=== PATIENT | female | born 1975 | race Two or more races ===

== ENCOUNTER 2016-11-07 09:04 | Emergency (ER) | payer OTHER ==
[2016-11-07 09:11] VITALS: TEMP 98.4; BMI 25.0
[2016-11-07 09:53] LABS: BASOPHIL 0.5 % (0-2.0); EOSINOPHIL 3.2 % (0-4.5); MCH 31.1 pg (25.7-33.7); MCHC 34.5 g/dl (32.0-36.0); MEAN PLT VOLUME 8.6 fl (7.5-11.1); NEUTROPHILS 63.8 % (42.8-82.8); PLATELET COUNT 214 K/MM3 (134-434); RDW 12.5 % (11.6-15.6); WHITE BLOOD COUNT 6.4 K/mm3 (4.0-10.0)
[2016-11-07 09:55] LABS: URINE APPEARANCE CLOUDY; URINE BILIRUBIN NEGATIVE (NEGATIVE); URINE BLOOD 1+ (NEGATIVE); URINE COLOR YELLOW; URINE GLUCOSE (UA) NEGATIVE (NEGATIVE); URINE KETONE NEGATIVE (NEGATIVE); URINE LEUK ESTERASE TRACE (NEGATIVE); URINE NITRITE NEGATIVE (NEGATIVE); URINE PROTEIN NEGATIVE (NEGATIVE); URINE UROBILINOGEN NEGATIVE mg/dL (0.2-1.0)
--- NOTE | 2016-11-07 10:03 | PDOC ---
History of Present Illness <Nancy Whitten - Last Filed: 11/07/16 11:25> - History of Present Illness Initial Comments: 11/07/16 09:57 "The patient is a 41 year old female @ 8 weeks, with a significant past medical history of kidney stones, umbilical hernia,retina detachment, and UTIs who presents to the emergency department complaining of lower abdominal pain and vaginal bleeding since yesterday evening. Patient describes the lower abdominal pain as cramp-like. She states that the vaginal bleeding was a small amount and began last night. This morning she states that she experienced a whole napkin full of pieces of blood clots. Pt had no complications with her previous pregnancies, no h/o miscarriage. Had an ultrasound at 6 weeks that she believes showed a +IUP. She denies recent fevers, chills, headache or dizziness. She denies recent nausea, vomit, diarrhea or constipation She denies recent dysuria, frequency, urgency or hematuria.. She denies recent chest pain or shortness of breath. Allergies: NKA Past surgical history: , Umbilical hernia Social history: Nonsmoker. Denies EtOH use and recreational drug use. " <Emeka Galvez - Last Filed: 11/07/16 12:55> - General Chief Complaint: Vaginal Bleeding Stated Complaint: ABD PAIN (8 WKS ) Time Seen by Provider: 11/07/16 09:15 Past History <Nancy Whitten - Last Filed: 11/07/16 11:25> - Past Medical History Kidney Stones: Yes - Surgical History Abdominal Surgery: (HERNIA) - Reproductive History Is Patient Now?: Yes (#): 4 Para: 3 - Psycho/Social/Smoking Cessation Hx Anxiety: No Suicidal Ideation: No Smoking History: Never smoked Hx Alcohol Use: No Drug/Substance Use Hx: No Substance Use Type: None <Emeka Galvez - Last Filed: 11/07/16 12:55> - Past Medical History Allergies/Adverse Reactions: Allergies Allergy/AdvReac Type Severity Reaction Status Date / Time No Known Allergies Allergy Verified 11/07/16 09:11 Home Medications: Ambulatory Orders Cholecalciferol (Vitamin D3) [Vitamin D3] 2,000 unit PO WEEKLY 11/07/16 Vits #93/Iron Fum/FA [ Formula Tablet] 1 each PO DAILY Review of Systems - Review of Systems Comments:: 11/07/16 10:01 "GENERAL/CONSTITUTIONAL: No fever or chills. No weakness. HEAD, EYES, EARS, NOSE AND THROAT: No change in vision. No ear pain or discharge. No sore throat. CARDIOVASCULAR: No chest pain or shortness of breath. RESPIRATORY: No cough, wheezing, or hemoptysis. GASTROINTESTINAL: +lower abdominal pain. No nausea, vomiting, diarrhea or constipation. GENITOURINARY: No dysuria, frequency, or change in urination. GYNECOLOGICAL: +vaginal bleeding MUSCULOSKELETAL: No joint or muscle swelling or pain. No neck or back pain. SKIN: No rash NEUROLOGIC: No headache, vertigo, loss of consciousness, or change in strength/ sensation. ENDOCRINE: No increased thirst. No abnormal weight change. HEMATOLOGIC/LYMPHATIC: No anemia, easy bleeding, or history of blood clots. ALLERGIC/IMMUNOLOGIC: No hives or skin allergy. " <Emeka Galvez - Last Filed: 11/07/16 12:55> *Physical Exam - Vital Signs Last Vital Signs Temp Pulse Resp BP Pulse Ox 98.4 F 84 20 131/56 100 11/07/16 09:08 11/07/16 09:08 11/07/16 09:08 11/07/16 09:08 11/07/16 09:08 <Nancy Whitten - Last Filed: 11/07/16 11:25> - Vital Signs Last Vital Signs Temp Pulse Resp BP Pulse Ox 98.4 F 84 20 131/56 100 11/07/16 09:08 11/07/16 09:08 11/07/16 09:08 11/07/16 09:08 11/07/16 09:08 - Physical Exam Comments: 11/07/16 10:02 "GENERAL: Awake, alert, and fully oriented, in no acute distress HEAD: No signs of trauma EYES: PERRLA, EOMI, sclera anicteric, conjunctiva clear ENT: Auricles normal inspection, hearing grossly normal, nares patent, oropharynx clear without exudates. Moist mucosa NECK: Normal ROM, supple, no lymphadenopathy, JVD, or masses LUNGS: Breath sounds equal, clear to auscultation bilaterally. No wheezes, and no crackles HEART: Regular rate and rhythm, normal S1 and S2, no murmurs, rubs or gallops ABDOMEN: +suprapubic tenderness. Soft,normoactive bowel sounds. No guarding, no rebound. No masses : blood in vault, closed os, no CMT, no active bleeding, no adnexal masses or tenderness EXTREMITIES: Normal range of motion, no edema. No clubbing or cyanosis. No cords, erythema, or tenderness NEUROLOGICAL: Cranial nerves II through XII grossly intact. Normal speech, normal gait SKIN: Warm, Dry, normal turgor, no rashes or lesions noted." <Emeka Galvez - Last Filed: 11/07/16 12:55> ED Treatment Course - LABORATORY CBC & Chemistry Diagram: 11/07/16 09:40 11/07/16 09:40 - ADDITIONAL ORDERS Additional order review: Laboratory Results 11/07/16 11/07/16 11/07/16 09:40 09:40 09:40 Sodium 139 Potassium 4.1 Chloride 107 Carbon Dioxide 25 Anion Gap 7 L BUN 12 D Creatinine 0.5 L Creat Clearance w eGFR > 60 Random Glucose 80 D Calcium 9.0 Total Bilirubin 0.3 AST 9 L ALT 20 Alkaline Phosphatase 68 Total Protein 6.3 L Albumin 3.2 L D Beta HCG, Quant 4088.2 Urine Color Yellow Urine Appearance Cloudy Urine pH 5.0 Urine Protein Negative Urine Glucose (UA) Negative Urine Ketones Negative Urine Blood 1+ H Urine Nitrite Negative Urine Bilirubin Negative Urine Urobilinogen Negative Urine RBC 6 Urine WBC 5 Ur Epithelial Cells Rare Urine Mucus Rare Blood Type B POSITIVE Antibody Screen Negative 11/07/16 09:40 RBC 4.27 MCV 90.0 MCHC 34.5 RDW 12.5 MPV 8.6 D Neutrophils % 63.8 Lymphocytes % 25.1 D Monocytes % 7.4 Eosinophils % 3.2 Basophils % 0.5 - RADIOLOGY Radiograph Interpretation: 11/07/16 11:27 Ultrasound Pelvic/Transvaginal Impression: Suspected fluid overlies of 7 weeks 3 days gestational age Reported by: Horacio Casas MD <Nancy Whitten - Last Filed: 11/07/16 11:25> - LABORATORY CBC & Chemistry Diagram: 11/07/16 09:40 11/07/16 09:40 - ADDITIONAL ORDERS Additional order review: 11/07/16 09:40 RBC 4.27 MCV 90.0 MCHC 34.5 RDW 12.5 MPV 8.6 D Neutrophils % 63.8 Lymphocytes % 25.1 D Monocytes % 7.4 Eosinophils % 3.2 Basophils % 0.5 - RADIOLOGY Radiology Studies Ordered: Category Date Time Status TRANSVAGINAL ULTRASOUND US [US] Stat Ultrasound 11/07/16 09:40 Ordered <Emeka Galvez - Last Filed: 11/07/16 12:55> Medical Decision Making - Medical Decision Making 11/07/16 10:03 41 F 8 weeks presenting with 2 days of suprapubic cramps and vaginal bleeding. Concerning for spontaneous AB. Pt with reported TVUS 2 weeks ago confirming IUP, but given that we have no record of that here, will repeat to rule out ectopic. - Labs, T&S, HCG - TVUS 11/07/16 12:45 TVUS shows IUP with no heart movement. Likely demise. OB consulted for inevitable Ab. Dr. Araujo recommends OR for D&C. I discussed with pt the results of the ultrasound and that the findings are consistent with demise. I recommended that she have D&C today. However, pt is opting to see her OB tomorrow for a repeat US and expectant management. Pt understands the higher risk of complications with expectant management, including bleeding and infection. However, she states that she would not like to have a D&C at this time and would rather have a repeat US tomorrow to confirm our findings before she decides what to do. Results of US were printed for patient. I have deemed that pt is of sound mind, without distracting injury or intoxication, and is capable of making decisions on her own. She understands the risks of expectant management instead of D&C. <Emeka Galvez - Last Filed: 11/07/16 12:55> *DC/Admit/Observation/Transfer - Attestations Scribe Attestion: 11/07/16 11:06 Documentation prepared by Nancy Whitten, acting as medical physics professor for Emeka Galvez MD. <Nancy Whitten - Last Filed: 11/07/16 11:25> - Attestations Physician Attestion: 11/07/16 12:55 I, Dr. Emeka Galvez MD, attest that this document has been prepared under my direction and personally reviewed by me in its entirety. I further attest, that it accurately reflects all work, treatment, procedures and medical decision -making performed by me. <Emeka Galvez - Last Filed: 11/07/16 12:55> Diagnosis at time of Disposition: Spontaneous - Discharge Dispostion Disposition: HOME Condition at time of disposition: Good - Referrals Referrals: Guy Ron MD [Primary Care Provider] - Juli Araujo MD [Staff Physician] - - Patient Instructions Printed Discharge Instructions: DI for Miscarriage, Dealing With Miscarriage Additional Instructions: You must follow up with your indoor sports centre manager tomorrow for a repeat ultrasound. Based on our ultrasound today, it is likely that you suffered a miscarriage. If you decide not to have a dilation and curettage (removal of the fetus), you may bleed more or risk infection. If you experience worsening pain, bleeding, lightheadedness, dizziness, chest pain, shortness of breath, or any other concerning symptoms, return immediately to the ER. Print Language: FRISIAN
[2016-11-07 10:07] LABS: URINE MUCUS RARE; URINE RBC 6 /hpf (0-3); URINE WBC 5 /hpf (3-5)
[2016-11-07 10:17] LABS: ALBUMIN 3.2 g/dl (3.4-5.0); ANION GAP 7 (8-16); BILIRUBIN,TOTAL 0.3 mg/dL (0.2-1.0); CO2 25 mmol/L (21-32); CREATININE 0.5 mg/dL (0.55-1.02); GLUCOSE,RANDOM 80 mg/dL (74-106); SGOT/AST 9 U/L (15-37); SGPT/ALT 20 U/L (12-78)
[2016-11-07 10:33] LABS: ALK PHOS 68 U/L (45-117); TOT PROT 6.3 g/dl (6.4-8.2)
[2016-11-07 13:09] VITALS: BP 115/64; PULSE 60
[2016-11-09] MEDS ORDERED: morphine CARPU-JECT 2 MG/1 ML DISP.SYRIN ONE (13:36)
[2016-11-09] MEDS ORDERED: ACETAMINOPHEN 325 MG TABLET (FP) ONE (19:19)
[2016-11-09] MEDS ORDERED: ONDANSETRON 4 MG/2 ML VIAL ONE (19:37)
== END 2016-11-07 13:06 | disposition home or self-care (01) ==
LOC: JER 09:04
DX: O02.1 Missed abortion (principal); Z3A.01 Less than 8 weeks gestation of pregnancy
CPT/HCPCS: 36415; 76830-TC; 76856-TC; 80053; 81003; 81015; 84702; 85025; 86850; 86900; 86901; 99282-25

== ENCOUNTER 2016-11-09 10:22 | Day surgery (SDC) | payer OTHER ==
[2016-11-09 10:45] VITALS: BMI 27.4
[2016-11-09] MEDS ORDERED: SODIUM CHLORIDE 0.9% 1000 ML INFUS.BAG IV ONE ×2 (11:24→13:25)
[2016-11-09] MEDS ORDERED: morphine CARPU-JECT 2 MG/1 ML DISP.SYRIN IVPUSH ONE ×2 (11:25→13:29)
--- NOTE | 2016-11-09 11:29 | PDOC ---
History of Present Illness - General History Source: Patient Exam Limitations: No Limitations - History of Present Illness Initial Comments: 11/09/16 11:51 The patient is a 41-year-old female /0/2/3 at 9 weeks with a significant past medical history of kidney stones, umbilical hernia, lupus, and UTIs, who presents to the emergency department with lower abdominal pain and vaginal bleeding for 3 days. She states she was seen at [facility] ER 2 days ago where she was diagnosed with a miscarriage. She went to her OBGYN yesterday for an abdominal ultrasound which confirmed the lack of heartbeat and 2 cysts on her ovary. She is scheduled for a D&C on Saturday. However, she states the pain has increased since yesterday. She reports the pain is a severe cramping located predominantly at the right suprapubic region radiating to the low back. She reports she soaked one pad yesterday and one this morning, and notes that the bleeding is now bright red and increasing. She denies any clots. She also complains of burning with urination, frequency, and hematuria. The patient denies chest pain, shortness of breath, headache and dizziness. The patient denies fever, chills, nausea, vomit, diarrhea and constipation. She denies any history of STDs. Allergies: NKDA Past Surgical History: , umbilical hernia, retina detachment Social History: Denies any toxic habits PCP: Dr. Guy Ron OBGYN: Dr. Monique Colón/ JARAD Rashid <Vanessa Johnson - Last Filed: 11/09/16 13:21> <Estela Peters - Last Filed: 11/09/16 13:26> - General Chief Complaint: Pain, Acute Stated Complaint: REVISIT/ PAIN Time Seen by Provider: 11/09/16 10:50 Past History <Vanessa Johnson - Last Filed: 11/09/16 13:21> - Past Medical History Disorders: Yes (kidney stones) Kidney Stones: Yes - Surgical History Abdominal Surgery: (HERNIA) - Reproductive History Is Patient Now?: Yes (#): 4 Para: 3 Cervical CA: No Dysfunctional Uterine Bleeding: No Ectopic : No Endometrial CA: No Polycystic Ovaries: No Tubal Ligation: No - Psycho/Social/Smoking Cessation Hx Anxiety: No Suicidal Ideation: No Smoking History: Former smoker Have you smoked in the past 12 months: Yes Information on smoking cessation initiated: No 'Breaking Loose' booklet given: 11/08/16 Hx Alcohol Use: No Drug/Substance Use Hx: No Substance Use Type: None Hx Substance Use Treatment: No <Estela Peters - Last Filed: 11/09/16 13:26> - Past Medical History Allergies/Adverse Reactions: Allergies Allergy/AdvReac Type Severity Reaction Status Date / Time No Known Allergies Allergy Verified 11/09/16 10:41 Home Medications: Ambulatory Orders Cholecalciferol (Vitamin D3) [Vitamin D3] 2,000 unit PO WEEKLY 11/07/16 Vits #93/Iron Fum/FA [ Formula Tablet] 1 each PO DAILY Ferrous Gluconate [Iron] 256 mg PO DAILY 11/08/16 Review of Systems - Review of Systems Able to Perform ROS?: Yes Comments:: 11/09/16 11:51 GENERAL/CONSTITUTIONAL: No fever or chills. No weakness. HEAD, EYES, EARS, NOSE AND THROAT: No change in vision. No ear pain or discharge. No sore throat. CARDIOVASCULAR: No chest pain or shortness of breath. RESPIRATORY: No cough, wheezing, or hemoptysis. GASTROINTESTINAL: (+) Abdominal pain. No nausea, vomiting, diarrhea or constipation. GENITOURINARY: (+) Vaginal bleeding. (+) Dysuria, frequency, hematuria. MUSCULOSKELETAL: No joint or muscle swelling or pain. No neck or back pain. SKIN: No rash NEUROLOGIC: No headache, vertigo, loss of consciousness, or change in strength/ sensation. ENDOCRINE: No increased thirst. No abnormal weight change. HEMATOLOGIC/LYMPHATIC: No anemia, easy bleeding, or history of blood clots. ALLERGIC/IMMUNOLOGIC: No hives or skin allergy. <Vanessa Johnson - Last Filed: 11/09/16 13:21> *Physical Exam - Vital Signs Last Vital Signs Temp Pulse Resp BP Pulse Ox 98.4 F 73 19 105/65 100 11/09/16 10:41 11/09/16 10:41 11/09/16 10:41 11/09/16 11:39 11/09/16 10:41 - Physical Exam Comments: 11/09/16 11:51 GENERAL: Awake, alert, and fully oriented, in no acute distress HEAD: No signs of trauma EYES: PERRLA, EOMI, sclera anicteric, conjunctiva clear ENT: Auricles normal inspection, hearing grossly normal, nares patent, oropharynx clear without exudates. Moist mucosa NECK: Normal ROM, supple, no lymphadenopathy, JVD, or masses LUNGS: Breath sounds equal, clear to auscultation bilaterally. No wheezes, and no crackles HEART: (+) Tachycardic. Regular rhythm, normal S1 and S2, no murmurs, rubs or gallops ABDOMEN: (+) Mild suprapubic tenderness. Soft, normoactive bowel sounds. No guarding, no rebound. No masses PELVIC: (+) Cervical tenderness. No adnexal tenderness. (+) Cervix is to fingertip. (+) Some blood in the vault. No active heavy bleeding. No other discharge. EXTREMITIES: Normal range of motion, no edema. No clubbing or cyanosis. No cords, erythema, or tenderness NEUROLOGICAL: Cranial nerves II through XII grossly intact. Normal speech. SKIN: Warm, Dry, normal turgor, no rashes or lesions noted. <Johnson,Vanessa - Last Filed: 11/09/16 13:21> - Vital Signs Last Vital Signs Temp Pulse Resp BP Pulse Ox 98.4 F 73 19 105/65 100 11/09/16 10:41 11/09/16 10:41 11/09/16 10:41 11/09/16 10:41 11/09/16 10:41 <Estela Peters - Last Filed: 11/09/16 13:26> ED Treatment Course - LABORATORY CBC & Chemistry Diagram: 11/09/16 11:40 11/09/16 11:40 - ADDITIONAL ORDERS Additional order review: 11/09/16 11:40 RBC 4.61 MCV 89.3 MCHC 34.4 RDW 12.7 MPV 8.6 Neutrophils % 67.5 Lymphocytes % 23.4 Monocytes % 6.5 Eosinophils % 2.2 D Basophils % 0.4 - Medications Given in the ED: ED Medications Discontinued Medications Generic Name Dose Route Start Last Admin Trade Name Freq PRN Reason Stop Dose Admin Morphine Sulfate 2 mg 11/09/16 11:25 11/09/16 11:40 Morphine Injection - IVPUSH 11/09/16 11:26 2 mg ONCE ONE Administration Sodium Chloride 1,000 ml 11/09/16 11:24 11/09/16 11:39 Normal Saline - IV 11/09/16 11:25 1,000 ml ONCE ONE Administration <Vanessa Johnson - Last Filed: 11/09/16 13:21> - LABORATORY CBC & Chemistry Diagram: 11/09/16 11:40 11/09/16 11:40 - RADIOLOGY Radiology Studies Ordered: Category Date Time Status <14WKS US [US] Stat Ultrasound 11/09/16 11:23 Ordered <Estela Peters - Last Filed: 11/09/16 13:26> Medical Decision Making - Medical Decision Making 11/09/16 12:08 JARAD Rashid was called and the case was discussed. 11/09/16 13:21 Dr. Medina was called and the case was discussed. Dr. Medina agreed to attempt to take the patient to the OR. <Vanessa Johnson - Last Filed: 11/09/16 13:21> - Medical Decision Making 11/09/16 12:54 41yo female with vaginal bleeding also with R pelvic pain -labs -fingertip os -will repeat hcg and ultrasound -expectant management for spontaneous miscarriage -hx of ovarian cysts, saw 2 per ob yesterday on ultrasound -suspect R pelvic pain from poss ruptured ovarian cyst -repeat ultrasound 11/09/16 13:[address] Alves who will take the pt to the OR for d/c today <Estela Peters - Last Filed: 11/09/16 13:26> *DC/Admit/Observation/Transfer - Attestations Scribe Attestion: 11/09/16 11:51 Documentation prepared by Vanessa Johnson, acting as medical records auditor for Estela Peters DO. <Vanessa Johnson - Last Filed: 11/09/16 13:21> - Discharge Dispostion Admit: Yes - Attestations Physician Attestion: 11/09/16 12:57 I, Dr. Estela Peters DO, attest that this document has been prepared under my direction and personally reviewed by me in its entirety. I further attest, that it accurately reflects all work, treatment, procedures and medical decision -making performed by ma. <Estela Peters - Last Filed: 11/09/16 13:26> Diagnosis at time of Disposition: Spontaneous - Discharge Dispostion Condition at time of disposition: Fair - Referrals Referrals: Guy Ron MD [Primary Care Provider] -
[2016-11-09] MEDS ORDERED: morphine CARPU-JECT 2 MG/1 ML DISP.SYRIN ONE (11:41)
[2016-11-09 11:45] LABS: BASOPHIL 0.4 % (0-2.0); EOSINOPHIL 2.2 % (0-4.5); MCH 30.7 pg (25.7-33.7); MCHC 34.4 g/dl (32.0-36.0); MEAN CELL VOLUME 89.3 fl (80-96); MEAN PLT VOLUME 8.6 fl (7.5-11.1); NEUTROPHILS 67.5 % (42.8-82.8); PLATELET COUNT 246 K/MM3 (134-434); RDW 12.7 % (11.6-15.6); WHITE BLOOD COUNT 7.3 K/mm3 (4.0-10.0)
[2016-11-09 12:08] LABS: ALBUMIN 3.8 g/dl (3.4-5.0); ANION GAP 8 (8-16); BILIRUBIN,TOTAL 0.4 mg/dL (0.2-1.0); CALCIUM 9.7 mg/dL (8.5-10.1); CO2 23 mmol/L (21-32); CREATININE 0.6 mg/dL (0.55-1.02); GLUCOSE,RANDOM 85 mg/dL (74-106); SGOT/AST 15 U/L (15-37); SGPT/ALT 26 U/L (12-78); TOT PROT 7.1 g/dl (6.4-8.2)
[2016-11-09 12:25] LABS: ALK PHOS 73 U/L (45-117)
[2016-11-09 12:29] LABS: URINE APPEARANCE CLOUDY; URINE BILIRUBIN NEGATIVE (NEGATIVE); URINE BLOOD 3+ (NEGATIVE); URINE COLOR AMBER; URINE GLUCOSE (UA) NEGATIVE (NEGATIVE); URINE KETONE TRACE (NEGATIVE); URINE LEUK ESTERASE TRACE (NEGATIVE); URINE NITRITE NEGATIVE (NEGATIVE); URINE UROBILINOGEN NEGATIVE mg/dL (0.2-1.0)
[2016-11-09 12:31] LABS: URINE PROTEIN 2+ (NEGATIVE)
[2016-11-09 12:37] LABS: INR 1.07 (0.82-1.09); PROTHROMBIN TIME (PATIENT) 11.8 SEC (9.98-11.88)
[2016-11-09 13:02] LABS: URINE MUCUS MANY; URINE RBC 2266 /hpf (0-3); URINE WBC 8 /hpf (3-5)
[2016-11-09] MEDS ORDERED: MIDAZOLAM HCL 2 MG/2 ML SINGLE DOSE VIAL ONE (14:25)
[2016-11-09] MEDS ORDERED: PROPOFOL 20 ML ONE (14:25)
[2016-11-09] MEDS ORDERED: LIDOCAINE HCL/PF 2% SDV 5ML VIAL ONE (14:26)
--- NOTE | 2016-11-09 14:39 | HP ---
Admitting History and Physical - Admission Chief Complaint: pelvic pain, bleeding History of Present Illness: 41 y/o with SIUP at approx 9 weeks by dates (8 weeks by sonogram) here today with complaints of pelvic pain and bleeding. Diagnosed with missed Ab earlier this week, was initially set up for D&C this coming Sunday 11/12 but the pain and bleeding worsened today which brought her to the ER. No other issues at this time. Repeat ultrasound and bHCG confirm missed . RH positive. History Source: Patient, Medical Record Limitations to Obtaining History: No Limitations - Past Medical History Cardiovascular: No: Deep Vein Thrombosis Pulmonary: No: Asthma, COPD Gastrointestinal: Yes: Other (umbilical hernia) Renal/: Yes: Renal Calculi ...LMP: 09/10/16 ...: Yes Infectious Disease: No: HIV, MRSA, STD's Psych: No: Anxiety, Bipolar, Depression Rheumatology: Yes: Lupus Endocrine: No: Diabetes Mellitus, Hyperthyroidism - Past Surgical History Past Surgical History: Yes: , Hernia Repair (umbilical) - Smoking History Smoking history: Former smoker Have you smoked in the past 12 months: Yes - Alcohol/Substance Use Hx Alcohol Use: No History of Substance Use: reports: None - Social History Usual Living Arrangement: Yes: With Spouse History of Recent Travel: No Home Medications - Allergies Allergies/Adverse Reactions: Allergies Allergy/AdvReac Type Severity Reaction Status Date / Time No Known Allergies Allergy Verified 11/09/16 10:41 - Home Medications Home Medications: Ambulatory Orders Cholecalciferol (Vitamin D3) [Vitamin D3] 2,000 unit PO WEEKLY 11/07/16 Vits #93/Iron Fum/FA [ Formula Tablet] 1 each PO DAILY Ferrous Gluconate [Iron] 256 mg PO DAILY 11/08/16 Review of Systems - Review of Systems Constitutional: reports: No Symptoms Eyes: reports: No Symptoms HENT: reports: No Symptoms Neck: reports: No Symptoms Cardiovascular: reports: No Symptoms Respiratory: reports: No Symptoms Gastrointestinal: reports: Abdominal Pain Genitourinary: reports: Vaginal Bleeding Neurological: reports: No Symptoms Endocrine: reports: No Symptoms Hematology/Lymphatic: reports: No Symptoms Physical Examination Vital Signs: Vital Signs Temperature 98.9 F 11/09/16 13:50 Pulse Rate 63 11/09/16 13:50 Respiratory Rate 20 11/09/16 13:50 Blood Pressure 127/65 11/09/16 13:50 O2 Sat by Pulse Oximetry (%) 100 11/09/16 13:50 Constitutional: Yes: Well Nourished, Calm, Mild Distress Eyes: Yes: Conjunctiva Clear, EOM Intact HENT: Yes: Atraumatic, Normocephalic Neck: Yes: Supple, Trachea Midline Cardiovascular: Yes: Regular Rate and Rhythm Respiratory: Yes: CTA Bilaterally Gastrointestinal: Yes: Normal Bowel Sounds, Soft Extremities: Yes: WNL Wound/Incision: Yes: Clean/Dry Labs: CBC, BMP 11/09/16 11:40 11/09/16 11:40 Problem List - Problems (1) Missed Code(s): O02.1 - MISSED Assessment/Plan 41 y/o with SIUP at 9 weeks gestation by dates (8 weeks by ultrasound) with missed /threatened (due to VB and mildly dilated cervix) NPO SCDs IV fluids for suction D&C - procedure explained to patient r/b/a discussed, consents signed anesthesia and nursing aware
[2016-11-09] MEDS ORDERED: KETOROLAC TROMETHAMINE 30 MG/1 ML VIAL ONE (14:59)
--- NOTE | 2016-11-09 15:08 | OP ---
Operative Note - Note: Operative Date: 11/09/16 (dictation number [id number]) Pre-Operative Diagnosis: missed /incomplete spontaneous Operation: suction D&C Anesthesiologist/HEALTH SUPPORT SPECIALIST: Nati Medina Anesthesia: MAC Estimated Blood Loss (mls): 20 Operative Report Dictated: Yes
[2016-11-09] MEDS ORDERED: ACETAMINOPHEN INJECTION 100 ML IVPB ONE (15:09)
[2016-11-09] MEDS ORDERED: IBUPROFEN 800 MG/8 ML IJ IVPB PRN (15:10)
[2016-11-09] MEDS ORDERED: ACETAMINOPHEN 325 MG TABLET (FP) PO PRN (15:10)
[2016-11-09] MEDS ORDERED: ONDANSETRON 4 MG/2 ML VIAL IVPUSH PRN (15:14)
[2016-11-09] MEDS ORDERED: ACETAMINOPHEN 1000 MG/100 ML VIAL (NON FORMULARY) IVPB ONE (15:14)
[2016-11-09] MEDS ORDERED: LACTATED RINGERS SOLUTION 1,000 ML IV SCH ×2 (15:15)
--- NOTE | 2016-11-10 19:23 | OP ---
DATE OF OPERATION: 11/09/2016 PREOPERATIVE DIAGNOSIS: Pelvic pain, vaginal bleeding consistent with an incomplete spontaneous . POSTOPERATIVE DIAGNOSIS: Pelvic pain, vaginal bleeding consistent with an incomplete spontaneous . PROCEDURE: Suction dilation and curettage. SURGEON: Nati Medina DO ANESTHESIA: MAC. Administered by Aaron Dennis. ESTIMATED BLOOD LOSS: 20 mL. COMPLICATIONS: None. SPECIMENS: Included products of conception sent to Pathology for permanent evaluation. Sponge and instrument count correct at the end of the case. DISPOSITION: Stable to PACU. BRIEF HISTORY: The patient is a 41-year-old who arrived to the emergency room on November 09, 2016 with complaints of pelvic pain and heavy vaginal bleeding. The patient was diagnosed with a missed approximately 2 days earlier. In the emergency department, the patient continued to have a retained fetus with no heart rate, but pain and bleeding had worsened over the past 48 hours. The patient was then kept n.p.o., and consents were signed for a suction dilation and curettage at this time. DESCRIPTION OF PROCEDURE: The patient was taken to the operating room. She was placed in the dorsal lithotomy position and given MAC anesthesia. Her cervix was serially dilated to accommodate an 8 curved suction curette, which was advanced to the fundus. Several passes were taken to remove the tissue. With sharp curette, all 4 aguilar of the uterus were gently curetted until an adequate uterine cry was appreciated and then 2 final passes of the suction curette were completed until all of the tissue had been removed. Minimal bleeding was noted to be from the cervical os at the end of the procedure. The tenaculum was removed. Any bleeding at the tenaculum site was controlled with application of an Allis clamp. All instruments were then removed from the vagina. Bleeding was noted to be minimal. Sponge and instrument counts were reported to be correct. The patient tolerated the procedure well and is recovering in PACU in stable condition at this time. NATI MEDINA DO /[id number] MTDD
--- NOTE | 2016-11-13 13:13 | PATH ---
Surgical Pathology Report Patient Name: DIPESH CHUA Med. Rec. #: [id number] /Age/Gender: 1975 (Age: 41) / F Account: [id number] Location: AMBULATORY SURG Taken: 11/09/2016 Received: 11/12/2016 Reported: 11/13/2016 Physicians: Nati Medina M.D. Specimen(s) Received UTERINE CONTENTS Clinical History Incomplete Final Diagnosis UTERINE CONTENTS: SOMATIC TISSUE IDENTIFIED (NUCLEATED RED BLOOD CELLS). CHORIONIC VILLUS TISSUE PRESENT, FOCALLY HYDROPIC. FRAGMENTS OF DECIDUA. Electronically Signed Jitendra Kim M.D. Gross Description Received in formalin labeled "uterine contents" is an 8.5 x 5.5 x 1.2 cm aggregate of potter-brown soft tissue fragments. Villous tissue is identified. No somatic tissue is identified. A freight representative portion is submitted in one cassette. /11/12/2016 [facility]/12/2016
== END 2016-11-09 20:20 | disposition home or self-care (01) ==
LOC: JER 10:22 → JASUSAT 13:27
PROVIDERS: ATTEND Obstetrics & Gynecology
PROC: 10D17ZZ Extraction of Products of Conception, Retained, Via Natural or Artificial Opening (ICD-10-PCS; principal; 2016-11-09 14:30)
DX: O03.4 Incomplete spontaneous abortion without complication (principal)
CPT/HCPCS: 36415; 76817-TC; 80053; 81003; 81015; 84702; 84703; 85025; 85610; 85730; 86850; 86900; 86901; 88305-TC; 94760; 99282-25

== ENCOUNTER 2016-11-15 14:05 | Emergency (ER) | payer OTHER ==
[2016-11-15 14:10] VITALS: BMI 27.4
--- NOTE | 2016-11-15 14:24 | PDOC ---
*Physical Exam - Vital Signs Last Vital Signs Temp Pulse Resp BP Pulse Ox 98.3 F 71 18 140/80 100 11/15/16 14:08 11/15/16 14:08 11/15/16 14:08 11/15/16 14:08 11/15/16 14:08 ED Treatment Course - LABORATORY CBC & Chemistry Diagram: 11/15/16 16:05 11/15/16 16:05 Medical Decision Making - Medical Decision Making 11/15/16 17:27 Pt seen by the Advanced Practice Provider under my direct supervision Ancillary studies reviewed I agree with plan as outlined by the Advanced Practice Provider *DC/Admit/Observation/Transfer Diagnosis at time of Disposition: Phlebitis after infusion Qualifiers: Encounter type: initial encounter Qualified Code(s): T80.1XXA - Vascular complications following infusion, transfusion and therapeutic injection, initial encounter Cellulitis Qualifiers: Site of cellulitis: extremity Site of cellulitis of extremity: upper extremity Laterality: right Qualified Code(s): L03.113 - Cellulitis of right upper limb - Discharge Dispostion Disposition: HOME Condition at time of disposition: Good - Prescriptions Prescriptions: Cephalexin [Keflex] 250 mg PO QID #28 capsule Naproxen [Naprosyn -] 500 mg PO BID #14 tablet Oxycodone HCl/Acetaminophen [Percocet 5-325 mg Tablet] 1 - 2 tab PO Q6H PRN #10 tab MDD 6 tabs PRN Reason: Severe Pain - Referrals Referrals: Guy Ron MD [Primary Care Provider] - - Patient Instructions Printed Discharge Instructions: DI for Superficial Thrombophlebitis Additional Instructions: warm compresses every 3hrs for 20 minutes take naprosyn as directed for pain that is mild to moderate take percocet for severe pain take kefelx as directed for 7 days follow with your medical doctor tomorrow for a follow up or return here for a follow up visit TOMORROW - Attestations Physician Attestion: 11/15/16 17:28 I, Dr. Mahogany Aldana MD, attest that this document has been prepared under my direction and personally reviewed by me in its entirety. I further attest, that it accurately reflects all work, treatment, procedures and medical decision -making performed by me.
[2016-11-15] MEDS ORDERED: morphine CARPU-JECT 4 MG/1 ML DISP.SYRIN IVPUSH ONE ×2 (14:36→16:51)
[2016-11-15] MEDS ORDERED: ONDANSETRON 4 MG/2 ML VIAL IVPUSH ONE (14:36)
--- NOTE | 2016-11-15 14:59 | PDOC ---
History of Present Illness - General Chief Complaint: Pain Stated Complaint: SENT BY PCP Time Seen by Provider: 11/15/16 14:20 History Source: Patient Exam Limitations: No Limitations - History of Present Illness Initial Comments: 11/15/16 14:39 41 yr female with c/o right upper arm pain, redness, swelling , warm to touch for 2 days. Pt had D&C at this hospital on 11/09/16 had an IV placed to her left AC area, pt now has redness, pain and swelling to the area. Pt states pain is radiating down her arm getting worse. Pt denies fever or chills no medical history or allergies. 11/15/16 14:59 11/15/16 15:01 Occurred: reports: last week Severity: reports: moderate Upper Extremity Pain Location: right: forearm (AC area to upper arm ) Past History - Past Medical History Allergies/Adverse Reactions: Allergies Allergy/AdvReac Type Severity Reaction Status Date / Time No Known Allergies Allergy Verified 11/15/16 14:10 Home Medications: Ambulatory Orders Cholecalciferol (Vitamin D3) [Vitamin D3] 2,000 unit PO WEEKLY 11/07/16 Vits #93/Iron Fum/FA [ Formula Tablet] 1 each PO DAILY Ibuprofen [Motrin -] 600 mg PO QID PRN #28 tablet 11/09/16 Cephalexin [Keflex] 250 mg PO QID #28 capsule 11/15/16 Naproxen [Naprosyn -] 500 mg PO BID #14 tablet 11/15/16 Oxycodone HCl/Acetaminophen [Percocet 5-325 mg Tablet] 1 - 2 tab PO Q6H PRN #10 tab MDD 6 tabs 11/15/16 Disorders: Yes (kidney stones) Kidney Stones: Yes - Surgical History Abdominal Surgery: Yes (HERNIA, D&C) - Reproductive History (#): 4 Para: 3 Cervical CA: No Dysfunctional Uterine Bleeding: No Ectopic : No Endometrial CA: No Polycystic Ovaries: No Tubal Ligation: No - Suicide/Smoking/Psychosocial Hx Smoking History: Never smoked Have you smoked in the past 12 months: Yes 'Breaking Loose' booklet given: 11/08/16 Hx Alcohol Use: No Drug/Substance Use Hx: No Substance Use Type: None Hx Substance Use Treatment: No Review of Systems - Review of Systems Able to Perform ROS?: Yes Is the patient limited Slovenian proficient: No Constitutional: No: Symptoms Reported HEENTM: No: Symptoms Reported Respiratory: No: Symptoms reported Cardiac (ROS): No: Symptoms Reported ABD/GI: No: Symptoms Reported : No: Symptoms Reported Musculoskeletal: Yes: See HPI Integumentary: Yes: See HPI *Physical Exam - Vital Signs Last Vital Signs Temp Pulse Resp BP Pulse Ox 98.3 F 71 18 140/80 100 11/15/16 14:08 11/15/16 14:08 11/15/16 14:08 11/15/16 14:08 11/15/16 14:08 - Physical Exam General Appearance: Yes: Nourished, Appropriately Dressed HEENT: positive: EOMI, ALEIDA, Normal ENT Inspection, TMs Normal Neck: positive: Supple. negative: Tender Respiratory/Chest: positive: Lungs Clear, Normal Breath Sounds Cardiovascular: positive: Regular Rhythm, Regular Rate Musculoskeletal: positive: Normal Inspection. negative: CVA Tenderness Extremity: positive: Normal Capillary Refill, Tender, Swelling, Erythema, Inflammation (right inner upper arm to the AC area with redness, swelling, warm to touch ) ED Treatment Course - LABORATORY CBC & Chemistry Diagram: 11/15/16 16:05 11/15/16 16:05 Medical Decision Making - Medical Decision Making 11/15/16 16:07 cc: right arm redness, tenderness, warmth to touch for 4-5 days after having IV placed to right arm pt denies fever or chills pain to the right arm radiating down to hand will get US r/o DVT labs, pain meds. 11/15/16 16:[address] keflex for superficial skin infection from the IV site surrounding the area with the phlebitis, can not rule out a cellulitus as well. US results discussed with the pt who understands the plan of care. 11/15/16 16:28 11/15/16 17:03 pt states pain has improved refused second dose of morphine the area has been marked with a marking pen and pt understands the need to return in 24hrs for follow up 11/15/16 17:06 *DC/Admit/Observation/Transfer Diagnosis at time of Disposition: Phlebitis after infusion Qualifiers: Encounter type: initial encounter Qualified Code(s): T80.1XXA - Vascular complications following infusion, transfusion and therapeutic injection, initial encounter Cellulitis Qualifiers: Site of cellulitis: extremity Site of cellulitis of extremity: upper extremity Laterality: right Qualified Code(s): L03.113 - Cellulitis of right upper limb - Discharge Dispostion Disposition: HOME Condition at time of disposition: Good - Prescriptions Prescriptions: Cephalexin [Keflex] 250 mg PO QID #28 capsule Naproxen [Naprosyn -] 500 mg PO BID #14 tablet Oxycodone HCl/Acetaminophen [Percocet 5-325 mg Tablet] 1 - 2 tab PO Q6H PRN #10 tab MDD 6 tabs PRN Reason: Severe Pain - Referrals Referrals: Guy Ron MD [Primary Care Provider] - - Patient Instructions Printed Discharge Instructions: DI for Superficial Thrombophlebitis Additional Instructions: warm compresses every 3hrs for 20 minutes take naprosyn as directed for pain that is mild to moderate take percocet for severe pain take kefelx as directed for 7 days follow with your medical doctor tomorrow for a follow up or return here for a follow up visit TOMORROW
[2016-11-15] MEDS ORDERED: morphine CARPU-JECT 4 MG/1 ML DISP.SYRIN ONE (15:12)
[2016-11-15] MEDS ORDERED: ONDANSETRON 4 MG/2 ML VIAL ONE (15:13)
[2016-11-15] MEDS ORDERED: KETOROLAC TROMETHAMINE 30 MG/1 ML VIAL IVPUSH ONE (16:08)
[2016-11-15 16:23] LABS: BASOPHIL 0.4 % (0-2.0); EOSINOPHIL 3.1 % (0-4.5); MCH 30.7 pg (25.7-33.7); MCHC 33.8 g/dl (32.0-36.0); MEAN PLT VOLUME 9.5 fl (7.5-11.1); NEUTROPHILS 67.3 % (42.8-82.8); PLATELET COUNT 228 K/MM3 (134-434); RDW 12.7 % (11.6-15.6); WHITE BLOOD COUNT 8.4 K/mm3 (4.0-10.0)
[2016-11-15] MEDS ORDERED: CEPHALEXIN MONOHYDRATE 500 MG CAPSULE (UD) PO ONE (16:26)
[2016-11-15 16:46] LABS: ALBUMIN 3.6 g/dl (3.4-5.0); ALK PHOS 77 U/L (45-117); ANION GAP 7 (8-16); BILIRUBIN,TOTAL 0.2 mg/dL (0.2-1.0); CO2 26 mmol/L (21-32); CREATININE 0.6 mg/dL (0.55-1.02); GLUCOSE,RANDOM 88 mg/dL (74-106); SGOT/AST 10 U/L (15-37); SGPT/ALT 20 U/L (12-78); TOT PROT 6.7 g/dl (6.4-8.2)
[2016-11-15 17:28] VITALS: BP 114/60; PULSE 55; TEMP 97.7
== END 2016-11-15 17:28 | disposition home or self-care (01) ==
LOC: JER 14:05
PROC: 3E033NZ Introduction of Analgesics, Hypnotics, Sedatives into Peripheral Vein, Percutaneous Approach (ICD-10-PCS; principal; 2016-11-15)
PROC: 3E0333Z Introduction of Anti-inflammatory into Peripheral Vein, Percutaneous Approach (ICD-10-PCS; 2016-11-15)
DX: T80.1XXA Vascular complications following infusion, transfusion and therapeutic injection, initial encounter (principal); I80.8 Phlebitis and thrombophlebitis of other sites; L03.113 Cellulitis of right upper limb; Y83.8 Other surgical procedures as the cause of abnormal reaction of the patient, or of later complication, without mention of misadventure at the time of the procedure
CPT/HCPCS: 36415; 80053; 85025; 87040; 93971; 99283-25